=== PATIENT | female | born 1965 | race Caucasian/White ===

== ENCOUNTER → 2017-01-22 | Outpatient (CLI) | payer OTHER ==
[~2017-01-22] MED LIST: DCS100C PO; ESTROGENS CONJUGATED PO; HYDR-34 PO; IBP600T1 PO; Simethicone PO; VALS1TAB74 PO
--- NOTE | 2017-01-24 19:02 | Diagnostic Imaging Report ---
Bilateral screening mammogram The current study was also evaluated with a Computer Aided Detection (CAD) system. Indication: Screening. No current complaints stated on the questionnaire. COMPARISON: 07/03/16. FINDINGS: The breasts are composed of scattered fibroglandular densities. Benign-appearing calcification in the right breast is seen. Allowing for technique and positional differences, no suspicious change is seen. IMPRESSION: No significant change. ACR BI-RADS Category 2: Benign findings. Result letter will be mailed to the patient. Note: At least 10% of breast cancer is not imaged by mammography. Dictated by: Dictated on workstation # [id number]
== END ==
LOC: RAD 08:45
PROVIDERS: ATTEND Obstetrics & Gynecology
DX: Z12.31 Encounter for screening mammogram for malignant neoplasm of breast (principal)
CPT/HCPCS: 77067

== ENCOUNTER → 2018-02-05 | Outpatient (CLI) | payer BC, OTHER ==
--- NOTE | 2018-02-06 11:55 | Diagnostic Imaging Report ---
INDICATION: Routine screening. Comparison is made with prior exam from 01/22/2017 and 07/03/2016. The current study was also evaluated with a Computer Aided Detection (CAD) system. Scattered fibroglandular densities are identified bilaterally. The parenchymal pattern appears stable. Intraparenchymal lymph nodes on the left appears stable. No new mass or malignant appearing microcalcifications are seen. The axillae are unremarkable. IMPRESSION: BI-RADS category 2 No mammographic features suspicious for malignancy are identified. ACR BI-RADS Category 2: Benign findings. Result letter will be mailed to the patient. Note: At least 10% of breast cancer is not imaged by mammography. Dictated by: Dictated on workstation # [id number]
== END ==
LOC: RAD 15:30
PROVIDERS: ATTEND Obstetrics & Gynecology
DX: Z12.31 Encounter for screening mammogram for malignant neoplasm of breast (principal)
CPT/HCPCS: 77067

== ENCOUNTER → 2019-04-21 | Outpatient (CLI) | payer BC ==
--- NOTE | 2019-04-21 13:12 | Diagnostic Imaging Report ---
INDICATION: Routine screening. COMPARISON: 02/05/2018 and 01/22/2017. TECHNIQUE: 2D and 3D bilateral screening mammography was performed with CAD. FINDINGS: Scattered fibroglandular densities are identified bilaterally. Intraparenchymal lymph nodes appear to be stable bilaterally. No new mass or malignant appearing microcalcifications are seen. The axillae are unremarkable. IMPRESSION: No mammographic features suspicious for malignancy are identified. ACR BI-RADS Category 2: Benign findings. Result letter will be mailed to the patient. Note: At least 10% of breast cancer is not imaged by mammography. Dictated by: Dictated on workstation # [id number]
== END ==
LOC: RAD 08:19
PROVIDERS: ATTEND Obstetrics & Gynecology
DX: Z12.31 Encounter for screening mammogram for malignant neoplasm of breast (principal)
CPT/HCPCS: 77067

== ENCOUNTER → 2020-07-21 | Outpatient (CLI) | payer BC ==
--- NOTE | 2020-07-25 08:39 | Diagnostic Imaging Report ---
Digital mammogram. Bilateral screening This study was compared to the prior exams of 04/21/2019, 02/05/2018 and 01/22/2017. At this time there are no current complaints. The current study was also evaluated with a Computer Aided Detection (CAD) system. FINDINGS: The fibroglandular tissue in both breasts is heterogeneously dense. This does limit the sensitivity of this exam. Overall, there does not appear to have been any significant change when compared to the prior study. No primary or secondary sign of malignancy is noted. IMPRESSION: There is no radiographic evidence for malignancy. ACR BI-RADS Category 1: Negative. Result letter will be mailed to the patient. Note: At least 10% of breast cancer is not imaged by mammography. Dictated by: Dictated on workstation # [id number]
== END ==
LOC: RAD 15:45
PROVIDERS: ATTEND Obstetrics & Gynecology
DX: Z12.31 Encounter for screening mammogram for malignant neoplasm of breast (principal)
CPT/HCPCS: 77063; 77067

== ENCOUNTER 2020-10-21 12:42 | Emergency (ER) | payer OTHER ==
[~2020-10-21] VITALS: Ht 157 cm; Wt 84.0 kg
[2020-10-21] MEDS ORDERED: LACTATED RINGERS 1,000 ML IV ONE ×2 (13:44→14:45)
[2020-10-21] MEDS ORDERED: LACTATED RINGERS 1,000 ML IV STA ×2 (13:46→15:35)
[2020-10-21 14:15] LABS: BASOPHILS % (AUTO) 0 % (0-10); EOSINOPHILS % (AUTO) 0 % (0-10); HEMATOCRIT 40 % (35-52); HEMOGLOBIN 13.7 g/dL (11.5-16.0); LYMPHOCYTES # (AUTO) 0.6 10^3/uL (1.0-4.0); LYMPHOCYTES % (AUTO) 12 % (12-44); MEAN CORPUSCULAR HEMOGLOBIN 30 pg (25-34); MEAN CORPUSCULAR HGB CONC 35 g/dL (32-36); MEAN CORPUSCULAR VOLUME 87 fL (80-99); MEAN PLATELET VOLUME 8.8 fL (9.0-12.2); MONOCYTES # (AUTO) 0.3 10^3/uL (0.0-1.0); MONOCYTES % (AUTO) 7 % (0-12); NEUTROPHILS % (AUTO) 81 % (42-75); PLATELET COUNT 185 10^3/uL (130-400); WHITE BLOOD COUNT 4.9 10^3/uL (4.3-11.0)
[2020-10-21 14:22] LABS: ALBUMIN 4.5 GM/DL (3.2-4.5); CHLORIDE 99 MMOL/L (98-107); POTASSIUM 2.7 MMOL/L (3.6-5.0); SODIUM 139 MMOL/L (135-145)
[2020-10-21 14:23] LABS: CALCIUM 9.2 MG/DL (8.5-10.1)
[2020-10-21 14:24] LABS: GLUCOSE 106 MG/DL (70-105); TOTAL PROTEIN 7.9 GM/DL (6.4-8.2)
[2020-10-21 14:25] LABS: CARBON DIOXIDE 25 MMOL/L (21-32)
[2020-10-21 14:26] LABS: BILIRUBIN,TOTAL 0.7 MG/DL (0.1-1.0)
[2020-10-21 14:27] LABS: ALKALINE PHOSPHATASE 73 U/L (40-136)
[2020-10-21] MEDS ORDERED: RT-ALBUTEROL INHALER HFA (VENTOLIN HFA) 18 GM IH ONE (14:27)
[2020-10-21 14:28] LABS: CREATININE SERUM 0.76 MG/DL (0.60-1.30); GFR ESTIMATED > 60
[2020-10-21 14:29] LABS: BUN/CREATININE RATIO 16
[2020-10-21 14:31] LABS: ALANINE AMINOTRANSFERASE 32 U/L (0-55)
--- NOTE | 2020-10-21 14:42 | Diagnostic Imaging Report ---
Portable erect AP chest at 225 hours. INDICATION: Cough, fever. FINDINGS: The heart size is within normal limits and stable when compared to 04/16/2016. The lungs seem generally clear. There are a few carotid bronchovascular markings in the left retrocardiac region but there is no clear evidence for pneumonia. There is no sign of a pleural effusion. The mediastinum is not widened. The osseous structures are intact. IMPRESSION: 1. There is no evidence for active disease. 2. If clinical concern regarding an underlying abnormality persists, then follow-up PA and lateral chest would be recommended for further study. Dictated by: Dictated on workstation # [id number]
--- NOTE | 2020-10-21 14:53 | ED Cough/URI ---
General Chief Complaint: Respiratory Problems Stated Complaint: COUGH/ HEAVY BREATHING Nursing Triage Note: PT STATES COUGH THAT STARTED ABOUT 11 DAYS AGO, HEAVINESS AND MORE COUGHING OVER THE LAST 2 DAYS, FEVER 37.8 AT TRIAGE BUT SHE HAD NOT NOTICED ONE AT HOME. Sepsis Screen: No Definite Risk Source: patient Exam Limitations: no limitations History of Present Illness Date Seen by Provider: Oct 21, 2020 Time Seen by Provider: 14:29 Initial Comments Here with report of cough that started on 10/10/2020 and has been fairly minimal until a few days ago when it got markedly worse. She thought it was allergies when it first started because it started after she was raking leaves on the . Noted fever at triage but not at home. Denies nausea or vomiting. Does describe some chest tightness and states that she feels it is just a little harder to breathe. No known Covid exposure. 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 Timing/Duration: getting worse, other (2 to 10 days) Severity/Quality: moderate, dry cough Prior Episodes/Possible Cause: no prior episodes Modifying Factors: Worse With Coughing; Improves With Rest Associated Symptoms: cough, fever/chills, nasal congestion, shortness of breath Allergies and Home Medications Allergies Coded Allergies: No Known Drug Allergies (Unverified , 03/30/15) Home Medications Docusate Sodium 100 Mg Cap, 100 MG PO BID PRN for CONSTIPATION Prescribed by: ADAMS SPENCER on 04/01/151402 Hydrocodone Bit/Acetaminophen 1 Ea Tablet, 1 EA PO Q6H PRN for PAIN Prescribed by: ADAMS SPENCER on 04/01/151402 Ibuprofen 600 Mg Tab, 600 MG PO Q6H PRN for PAIN Prescribed by: ADAMS SPENCER on 04/01/151402 [Estrogens Conjugated] 0.625 MG TAB, 0.625 MG PO DAILY Prescribed by: ADAMS SPENCER on 04/01/151402 [Simethicone] 80 MG CHEW, 40 MG PO TID PRN for INDIGESTION Prescribed by: ADAMS SPENCER on 04/01/151402 Patient Home Medication List Home Medication List Reviewed: Yes Review of Systems Review of Systems Constitutional: see HPI; No chills; fever EENTM: see HPI Respiratory: see HPI Cardiovascular: No chest pain, No edema Gastrointestinal: No abdominal pain; nausea; No vomiting Genitourinary: no symptoms reported Musculoskeletal: no symptoms reported Skin: no symptoms reported All Other Systems Reviewed Negative Unless Noted: Yes Past Czchrxf-Xcnirv-Mefkzz Hx Past Med/Social Hx: Reviewed Nursing Past Med/Soc Hx Patient Social History Alcohol Use: Denies Use Recreational Drug Use: No Smoking Status: Never a Smoker Recent Foreign Travel: No Contact w/Someone Who Travel: No Recent Infectious Disease Expo: No Recent Hopitalizations: No Physical Abuse: No Sexual Abuse: No Mistreated: No Fear: No Immunizations Up To Date Date of Influenza Vaccine: Jul 28, 2020 Seasonal Allergies Seasonal Allergies: Yes Past Medical History Surgeries: Yes (HALF THYROID) Gallbladder, Hysterectomy Respiratory: No Cardiac: Yes Hypertension Neurological: No : No Reproductive Disorders: No Female Reproductive Disorders: Denies Sexually Transmitted Disease: No HIV/AIDS: No Genitourinary: No Gastrointestinal: No Musculoskeletal: No Endocrine: No Cancer: No Psychosocial: No Integumentary: No Blood Disorders: No Adverse Reaction/Blood Tranf: No Family Medical History Reviewed Nursing Family Hx Physical Exam Vital Signs - First Documented 10/21/20 13:50 Temp 37.8 Pulse 102 Resp 16 B/P (MAP) 151/92 (111) Pulse Ox 97 O2 Delivery Room Air Capillary Refill : Less Than 3 Seconds Height: 5'3.00" Weight: 219lbs. oz. 99.863517rc; 34.00 BMI Method: General Appearance: WD/WN, no apparent distress HEENT: PERRL/EOMI, pharynx normal Neck: full range of motion, supple Respiratory: lungs clear, normal breath sounds Cardiovascular: no murmur, tachycardia Gastrointestinal: non tender, soft Extremities: non-tender, normal inspection Neurologic/Psychiatric: alert, oriented x 3 Skin: normal color, warm/dry Progress/Results/Core Measures Suspected Sepsis Recent Fever Within 48 Hours: No Infection Criteria Present: Suspected New Infection New/Unexplained Altered Menta: No Sepsis Screen: No Definite Risk SIRS Temperature: Pulse: 102 Respiratory Rate: 16 Laboratory Tests 10/21/20 14:00: White Blood Count 4.9 Blood Pressure 151 /92 Mean: 111 Laboratory Tests 10/21/20 14:00: Creatinine 0.76, Platelet Count 185, Total Bilirubin 0.7 Results/Orders Lab Results Laboratory Tests Test 10/21/20 13:55 10/21/20 14:00 Range/Units Coronavirus 2019 ([facility]) Positive H Negative White Blood Count 4.9 4.3-11.0 10^3/uL Red Blood Count 4.55 3.80-5.11 10^6/uL Hemoglobin 13.7 11.5-16.0 g/dL Hematocrit 40 35-52 % Mean Corpuscular Volume 87 80-99 fL Mean Corpuscular Hemoglobin 30 25-34 pg Mean Corpuscular Hemoglobin Concent 35 32-36 g/dL Red Cell Distribution Width 12.1 10.0-14.5 % Platelet Count 185 130-400 10^3/uL Mean Platelet Volume 8.8 L 9.0-12.2 fL Immature Granulocyte % (Auto) 1 % Neutrophils (%) (Auto) 81 H 42-75 % Lymphocytes (%) (Auto) 12 12-44 % Monocytes (%) (Auto) 7 0-12 % Eosinophils (%) (Auto) 0 0-10 % Basophils (%) (Auto) 0 0-10 % Neutrophils # (Auto) 4.0 1.8-7.8 10^3/uL Lymphocytes # (Auto) 0.6 L 1.0-4.0 10^3/uL Monocytes # (Auto) 0.3 0.0-1.0 10^3/uL Eosinophils # (Auto) 0.0 0.0-0.3 10^3/uL Basophils # (Auto) 0.0 0.0-0.1 10^3/uL Immature Granulocyte # (Auto) 0.0 0.0-0.1 10^3/uL D-Dimer 0.59 H 0.00-0.49 UG/ML Sodium Level 139 135-145 MMOL/L Potassium Level 2.7 L 3.6-5.0 MMOL/L Chloride Level 99 98-107 MMOL/L Carbon Dioxide Level 25 21-32 MMOL/L Anion Gap 15 H 5-14 MMOL/L Blood Urea Nitrogen 12 7-18 MG/DL Creatinine 0.76 0.60-1.30 MG/DL Estimat Glomerular Filtration Rate > 60 BUN/Creatinine Ratio 16 Glucose Level 106 H 70-105 MG/DL Calcium Level 9.2 8.5-10.1 MG/DL Corrected Calcium 8.8 8.5-10.1 MG/DL Total Bilirubin 0.7 0.1-1.0 MG/DL Aspartate Amino Transf (AST/SGOT) 35 H 5-34 U/L Alanine Aminotransferase (ALT/SGPT) 32 0-55 U/L Alkaline Phosphatase 73 40-136 U/L C-Reactive Protein High Sensitivity 9.58 H 0.00-0.50 MG/DL B-Type Natriuretic Peptide < 10.0 <100.0 PG/ML Total Protein 7.9 6.4-8.2 GM/DL Albumin 4.5 3.2-4.5 GM/DL Procalcitonin 0.03 <0.10 NG/ML Micro Results Microbiology 10/21/20 Influenza Types A,B Antigen ([facility]OR[facility]) - Final, Complete My Orders Orders - TONIA RAMIREZ MD Lactated Ringers (Lr 1000 Ml Iv Solution (10/21/20 13:46) Lactated Ringers (Lr 1000 Ml Iv Solution (10/21/20 13:44) Albuterol Inhaler (Ventolin Hfa) (10/21/20 14:27) Ed Iv/Invasive Line Start (10/21/20 14:41) Lactated Ringers (Lr 1000 Ml Iv Solution (10/21/20 14:45) Potassium Chloride (Tablet) (K Dur Table (10/21/20 15:00) Lactated Ringers (Lr 1000 Ml Iv Solution (10/21/20 15:35) Medications Given in ED Current Medications Medications Dose Ordered Sig/Vianca Route Start Time Stop Time Status Last Admin Dose Admin Albuterol Sulfate 18 gm STK-MED ONCE IH 10/21/20 14:27 10/21/20 14:30 DC 10/21/20 14:40 18 GM Lactated Ringer's 1,000 ml @ ud STK-MED ONCE IV 10/21/20 13:44 10/21/20 13:48 DC 10/21/20 14:06 1,000 MLS/HR Potassium Chloride 40 meq ONCE ONCE PO 10/21/20 15:00 10/21/20 15:01 DC 10/21/20 14:59 40 MEQ Vital Signs/I&O 10/21/20 13:50 Temp 37.8 Pulse 102 Resp 16 B/P (MAP) 151/92 (111) Pulse Ox 97 O2 Delivery Room Air Capillary Refill : Less Than 3 Seconds Blood Pressure Mean: 111 Progress Note : Progress Note Seen and evaluated. IV, labs, chest x-ray and Covid swab ordered. Covid swab was positive. Patient remains with heart rate upper 90s after 1 L of fluid. Repeat LR 1 L bolus. Albuterol metered-dose inhaler 4 puffs via spacer given. Potassium 40 mEq p.o. ordered. Monitor patient. 1557: Overall doing a little better. I did discuss the case with her [id number]. He will get her pulse oximeter. Overall her oxygen saturations are remaining in the high 90s to 100% resting. Discharged home with return precautions. Patient verbalized understanding of instructions and agreement with plan. Does not meet inclusion criteria for monoclonal antibody therapy. ECG Initial ECG Impression Date: Oct 21, 2020 Initial ECG Impression Time: 13:34 Initial ECG Rate: 102 Initial ECG Rhythm: Normal Sinus Comment Sinus rhythm with normal axis. LVH noted. Change from 04/16/2016. No evidence of ST elevation SD. Interpreted by me. Diagnostic Imaging Diagonstic Imaging: Xray Plain Films/CT/US/NM/MRI: chest Comments NAME: LUISA LAZARO [facility] REC#: [id number] PT STATUS: REG ER : 1965 PHYSICIAN: RACHEL DESAI APRN ADMIT DATE: 10/21/20/ER Draft Date of Exam:10/21/20 CHEST 1 VIEW, AP/PA ONLY Portable erect AP chest at 225 hours. INDICATION: Cough, fever. FINDINGS: The heart size is within normal limits and stable when compared to 04/16/2016. The lungs seem generally clear. There are a few carotid bronchovascular markings in the left retrocardiac region but there is no clear evidence for pneumonia. There is no sign of a pleural effusion. The mediastinum is not widened. The osseous structures are intact. IMPRESSION: 1. There is no evidence for active disease. 2. If clinical concern regarding an underlying abnormality persists, then follow-up PA and lateral chest would be recommended for further study. Dictated on workstation # [id number] Dict: 10/21/20 1433 Trans: 10/21/20 1441 [id number] Interpreted by: JENNIFER AYALA MD Electronically signed by: Departure Impression Primary Impression: COVID-19 virus infection Additional Impression: Hypokalemia Disposition: 01 HOME, SELF-CARE Condition: Stable Departure-Patient Inst. Decision time for Depature: 15:34 Referrals: PALLAVI KELLEY MD (PCP/Family) Primary Care Physician Patient Instructions: Coronavirus Disease 2019 (COVID-19) Overview, Hypokalemia Add. Discharge Instructions: All discharge instructions reviewed with patient and/or family. Voiced understanding. Drink plenty of fluids and get plenty of rest. Your potassium was low so you should add electrolyte containing fluids such as Gatorade to your diet. You may also eat high potassium content foods such as bananas. You will need to remain isolated. The health department will call you and direct isolation timeframe. You may take ibuprofen 600 mg every 8 hours as needed for fever or pain. You may take Tylenol/acetaminophen 1000 mg every 8 hours as needed for fever or pain. Return for worse pain, fever, vomiting, weakness, breathing problems or other concerns as needed. Monitor your oxygen saturations. If your resting oxygen saturation is greater than 94%, there is no concern. If your oxygen saturation falls to the range of 90 or 91% (and certainly below that) while resting, you will need to return to the hospital for further evaluation. TONIA RAMIREZ MD Oct 21, 2020 14:53
[2020-10-21] MEDS ORDERED: KCL 20 MEQ TAB (K-DUR) PO ONE (15:00)
[2020-10-21 15:53] VITALS: BP 130/79
== END 2020-10-21 15:53 | disposition home or self-care (01) ==
LOC: EDUNIT# 12:42 → ER 12:44
DX: U07.1 COVID-19 (principal); E87.6 Hypokalemia
CPT/HCPCS: 71045; 80053; 83880; 84145; 85025; 85379; 86141; 87804; 99284; U0002; 36415; 87635

== ENCOUNTER → 2021-12-25 | Outpatient (CLI) | payer OTHER ==
--- NOTE | 2021-12-26 13:10 | Diagnostic Imaging Report ---
INDICATION: Routine screening Comparison is made with prior mammogram 07/21/2020 and 04/21/2019. 2-D and 3-D bilateral screening mammography was performed with CAD. Scattered fibroglandular densities are identified bilaterally. Bilateral densities appear to be stable. No new mass or malignant-appearing microcalcifications are seen. There are benign calcifications present. Axillae are unremarkable. IMPRESSION: No mammographic features suspicious for malignancy are identified. BI-RADS Category 2 ACR BI-RADS Category 2: Benign findings. Result letter will be mailed to the patient. Note: At least 10% of breast cancer is not imaged by mammography. Dictated by: Dictated on workstation # [id number]
== END ==
LOC: RAD 15:45
PROVIDERS: ATTEND Family Medicine Sports Medicine
DX: Z12.31 Encounter for screening mammogram for malignant neoplasm of breast (principal)
CPT/HCPCS: 77063; 77067

== ENCOUNTER 2023-06-11 03:16 | Emergency (ER) | payer OTHER ==
[~2023-06-11] VITALS: Ht 157.4 cm; Wt 90.7 kg
[2023-06-11 03:23] VITALS: BP 145/99
--- NOTE | 2023-06-11 03:55 | ED Abdominal Pain ---
General Chief Complaint: Abdominal/GI Problems Stated Complaint: ABD PAIN Nursing Triage Note: HAVING RLQ PAIN SINCE 01/04/23. TAKEN IBUPROFEN INTERMITTENTLY. SOME RELIEF. DULL ACHY PAIN WITH SHARPNESS WITH PALPATION. REPORTS INTERMITTENTLY CLAMMINESS AND SWEATS, NO FEVER NOTED. PAIN WOKE PT OUT OF SLEEP TONIGHT. LAST BM WAS 06/10/23. HAVING SOME DIARRHEA. Source of Information: Patient Exam Limitations: No Limitations History of Present Illness Date Seen by Provider: Jun 11, 2023 Time Seen by Provider: 03:42 Initial Comments Patient is a 58-year-old female who presents to the emergency department with a chief complaint of right lower quadrant abdominal pain. Patient states that the pain has been indolent over the course of the last 5 days. She has taken some ibuprofen with a little relief of symptoms. She states that movement, walking and palpation of the area make her pain more intense. She did wake up this morning at 2 AM and was concerned that she was ignoring something that could be important so decided to come and be evaluated. She denies known fever. She did wake up quite sweaty this morning. She denies any dysuria, urgency or frequency. No blood noticed in her urine. No black or bloody stools, no diarrhea. She is scheduled for her first colonoscopy at the beginning of July. She has had prior cholecystectomy and laparoscopic hysterectomy. She did take some ibuprofen prior to sleep last night. She has just generally not felt well over the course of the last several days. 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 Timing/Duration: 4-5 Days, Constant Severity/Quality: Aching, Sharp Location: RLQ Radiation: No Radiation Activities at Onset: None Modifying Factors: Worsens With Movement, Worsens With Palpation Associated Symptoms: Diaphoresis Allergies and Home Medications Allergies Coded Allergies: No Known Drug Allergies (Unverified , 03/30/15) Patient Home Medication List Home Medication List Reviewed: Yes Docusate Sodium (Colace) 100 Mg Cap, 100 MG PO BID PRN for CONSTIPATION Prescribed by: ADAMS SPENCER on 04/01/15 1403 Hydrocodone Bit/Acetaminophen (Lortab 7.5 Mg Tablet) 1 Ea Tablet, 1 EA PO Q6H PRN for PAIN Prescribed by: ADAMS SPENCER on 04/01/15 1403 Ibuprofen (Motrin Tablet) 600 Mg Tab, 600 MG PO Q6H PRN for PAIN Prescribed by: ADAMS SPENCER on 04/01/15 140 Valsartan/Hydrochlorothiazide (Valsartan-Hctz 160-12.5 Mg Tab) 1 Each Tablet, 1 EACH PO, (Reported) Entered as Reported by: VIRA JIMENEZ on 03/30/15 1016 [Estrogens Conjugated] 0.625 MG TAB, 0.625 MG PO DAILY Prescribed by: ADAMS SPENCER on 04/01/15 140 [Simethicone] 80 MG CHEW, 40 MG PO TID PRN for INDIGESTION Prescribed by: ADAMS SPENCER on 04/01/151402 Review of Systems Review of Systems Constitutional: see HPI Respiratory: No Symptoms Reported Cardiovascular: No Symptoms Reported Gastrointestinal: Abdominal Pain; Denies Constipated, Denies Diarrhea, Denies Nausea, Denies Rectal Bleeding Genitourinary: No Symptoms Reported; Denies Hematuria Musculoskeletal: no symptoms reported Skin: no symptoms reported Psychiatric/Neurological: No Symptoms Reported All Other Systems Reviewed Negative Unless Noted: Yes Past Yuwvrqy-Pkqqxh-Fyubjn Hx Patient Social History Tobacco Use?: No Substance use?: No Alcohol Use?: No Pt feels they are or have been: No Seasonal Allergies Seasonal Allergies: Yes Past Medical History Surgeries: Yes (HALF THYROID) Gallbladder, Hysterectomy Respiratory: No Cardiac: Yes Hypertension Neurological: No Reproductive Disorders: No Female Reproductive Disorders: Denies Sexually Transmitted Disease: No HIV/AIDS: No Genitourinary: No Gastrointestinal: No Musculoskeletal: No Endocrine: No Cancer: No Psychosocial: No Integumentary: No Blood Disorders: No Adverse Reaction/Blood Tranf: No Physical Exam Vital Signs Vital Signs - First Documented 06/11/23 03:23 Temp 36.7 Pulse 97 Resp 18 B/P (MAP) 145/99 (114) Pulse Ox 98 O2 Delivery Room Air Capillary Refill : Less Than 3 Seconds Height/Weight/BMI Height: 5'3.00" Weight: 219lbs. oz. 99.457458lp; 36.00 BMI Method: General Appearance: WD/WN, no apparent distress, obese HEENT: PERRL/EOMI Respiratory: lungs clear, normal breath sounds, no respiratory distress, no accessory muscle use Cardiovascular: regular rate, rhythm Gastrointestinal: soft, tenderness (mild tenderness RLQ without rebound or involuntary guarding. neg psoas/heel tap) Extremities: normal range of motion, normal inspection Back: normal inspection Neurologic/Psychiatric: no motor/sensory deficits, alert, normal mood/affect, oriented x 3 Skin: normal color, warm/dry Progress/Results/Core Measures Results/Orders Lab Results Laboratory Tests Test 06/11/23 03:36 06/11/23 03:54 Range/Units White Blood Count 10.5 4.3-11.0 10^3/uL Red Blood Count 4.07 3.80-5.11 10^6/uL Hemoglobin 12.5 11.5-16.0 g/dL Hematocrit 36 35-52 % Mean Corpuscular Volume 89 80-99 fL Mean Corpuscular Hemoglobin 31 25-34 pg Mean Corpuscular Hemoglobin Concent 35 32-36 g/dL Red Cell Distribution Width 12.6 10.0-14.5 % Platelet Count 236 130-400 10^3/uL Mean Platelet Volume 9.0 9.0-12.2 fL Immature Granulocyte % (Auto) 0 % Neutrophils (%) (Auto) 68 42-75 % Lymphocytes (%) (Auto) 22 12-44 % Monocytes (%) (Auto) 9 0-12 % Eosinophils (%) (Auto) 1 0-10 % Basophils (%) (Auto) 0 0-10 % Neutrophils # (Auto) 7.1 1.8-7.8 10^3/uL Lymphocytes # (Auto) 2.3 1.0-4.0 10^3/uL Monocytes # (Auto) 0.9 0.0-1.0 10^3/uL Eosinophils # (Auto) 0.1 0.0-0.3 10^3/uL Basophils # (Auto) 0.0 0.0-0.1 10^3/uL Immature Granulocyte # (Auto) 0.0 0.0-0.1 10^3/uL Sodium Level 138 135-145 MMOL/L Potassium Level 3.0 L 3.6-5.0 MMOL/L Chloride Level 104 98-107 MMOL/L Carbon Dioxide Level 23 21-32 MMOL/L Anion Gap 11 5-14 MMOL/L Blood Urea Nitrogen 17 7-18 MG/DL Creatinine 0.76 0.60-1.30 MG/DL Estimat Glomerular Filtration Rate 92 BUN/Creatinine Ratio 22 Glucose Level 108 H 70-105 MG/DL Calcium Level 9.3 8.5-10.1 MG/DL Urine Color YELLOW Urine Clarity CLEAR Urine pH 5.5 5-9 Urine Specific [place] >=1.030 1.016-1.022 Urine Protein TRACE H NEGATIVE Urine Glucose (UA) NEGATIVE NEGATIVE Urine Ketones NEGATIVE NEGATIVE Urine Nitrite NEGATIVE NEGATIVE Urine Bilirubin NEGATIVE NEGATIVE Urine Urobilinogen 0.2 < = 1.0 MG/DL Urine Leukocyte Esterase NEGATIVE NEGATIVE Urine RBC (Auto) NEGATIVE NEGATIVE Urine RBC NONE /HPF Urine WBC 0-2 /HPF Urine Squamous Epithelial Cells 5-10 /HPF Urine Crystals PRESENT H /LPF Urine Amorphous Sediment FEW RUBIN URATES H /LPF Urine Bacteria FEW H /HPF Urine Casts NONE /LPF Urine Mucus SMALL H /LPF Urine Culture Indicated YES My Orders Orders - RODOLFO SAUER MD Ed Iv/Invasive Line Start (06/11/23 03:51) Cbc With Automated Diff (06/11/23 03:51) Basic Metabolic Panel (06/11/23 03:51) Urinalysis (06/11/23 03:51) Urine Culture (06/11/23 03:54) Outside Films For Comparison (06/11/23 ) Vital Signs/I&O 06/11/23 06/11/23 03:23 05:18 Temp 36.7 36.4 Pulse 97 94 Resp 18 14 B/P (MAP) 145/99 (114) Pulse Ox 98 98 O2 Delivery Room Air Room Air Blood Pressure Mean: 114 Progress Progress Note : Time: 05:12 Progress Note Patient seen and evaluated by me. Evaluation today includes physical exam, basic metabolic panel and urinalysis. Pertinent physical exam findings well- developed well-nourished female in no acute distress. Heart is regular, lungs are clear. She has mild tenderness to deep palpation in the right lower quadrant without rebound or involuntary guarding. Negative heeltap. She has normal bowel sounds. No overlying erythema to the abdominal wall. No concerns for rashes. Her vital signs are stable, she is afebrile, not hypoxic, not tachycardic. Differential diagnosis based on history and physical examination, UTI, acute appendicitis, colitis. Labs independently reviewed and interpreted by me. Her CBC is completely normal. Her basic metabolic panel shows a mild hypokalemia at 3.0. Her renal function is normal. Her urinalysis is concentrated with specific gravity greater than 1.030 and no evidence of infection. Patient did not require any medications for pain during her stay in the emergency department. She states it was actually better at the time of exam. She is concerned for appendicitis, reassurance was provided. Clinically she does have right lower quadrant tenderness however without rebound, involuntary guarding, vomiting, leukocytosis and fever I did not believe that a CAT scan was warranted at this time. The patient tells me that she has an appointment with her primary care provider at 1030 this morning. I recommended that she keep this appointment as her exam could change. Return precautions provided in both verbal and written format. All questions are sought and answered. Patient is stable for discharge and enco uraged to continue Tylenol and ibuprofen as needed for pain Departure Impression Primary Impression: Abdominal pain Qualified Codes: R10.31 - Right lower quadrant pain Disposition: 01 HOME, SELF-CARE Condition: Stable Departure-Patient Inst. Decision time for Depature: 05:12 Referrals: ABHISHEK RITCHIE MD (PCP/Family) Primary Care Physician RODOLFO SAUER MD Jun 11, 2023 03:55
[2023-06-11 03:59] LABS: BASOPHILS % (AUTO) 0 % (0-10); EOSINOPHILS # (AUTO) 0.1 10^3/uL (0.0-0.3); EOSINOPHILS % (AUTO) 1 % (0-10); HEMATOCRIT 36 % (35-52); HEMOGLOBIN 12.5 g/dL (11.5-16.0); LYMPHOCYTES # (AUTO) 2.3 10^3/uL (1.0-4.0); LYMPHOCYTES % (AUTO) 22 % (12-44); MEAN CORPUSCULAR HEMOGLOBIN 31 pg (25-34); MEAN CORPUSCULAR HGB CONC 35 g/dL (32-36); MEAN CORPUSCULAR VOLUME 89 fL (80-99); MONOCYTES # (AUTO) 0.9 10^3/uL (0.0-1.0); MONOCYTES % (AUTO) 9 % (0-12); NEUTROPHILS # (AUTO) 7.1 10^3/uL (1.8-7.8); NEUTROPHILS % (AUTO) 68 % (42-75); PLATELET COUNT 236 10^3/uL (130-400); WHITE BLOOD COUNT 10.5 10^3/uL (4.3-11.0)
[2023-06-11 04:12] LABS: CALCIUM 9.3 MG/DL (8.5-10.1)
[2023-06-11 04:16] LABS: CREATININE SERUM 0.76 MG/DL (0.60-1.30)
[2023-06-11 04:25] LABS: AMORPHOUS SEDIMENT,UR FEW AMOR URATES /LPF; BACTERIA,URINE FEW /HPF; BILIRUBIN,URINE NEGATIVE (NEGATIVE); CLARITY,URINE CLEAR; COLOR,URINE YELLOW; GLUCOSE, URINE (UA) NEGATIVE (NEGATIVE); KETONES,URINE NEGATIVE (NEGATIVE); LEUKOCYTE ESTERASE ,URINE NEGATIVE (NEGATIVE); NITRITE,URINE NEGATIVE (NEGATIVE); PH,URINE 5.5 (5-9); PROTEIN,URINE TRACE (NEGATIVE); WBC,URINE 0-2 /HPF
[2023-06-11] MEDS ORDERED: LIDOCAINE PF 2% 5 ML VIAL ONE (16:56)
[2023-06-11] MEDS ORDERED: MIDAZOLAM INJ 2 MG/2 ML VIAL ONE (16:56)
[2023-06-11] MEDS ORDERED: SEVOFLURANE (ULTANE) 15 ML INHAL SOLN ONE (16:56)
[2023-06-11] MEDS ORDERED: fentaNYL INJECTION 100 MCG/2 ML VIAL ONE (16:56)
[2023-06-11] MEDS ORDERED: ROCURONIUM 50 MG/5 ML (ZEMURON) VIAL IV ONE (16:56)
[2023-06-11] MEDS ORDERED: proPOfol 200 MG/20 ML (DIPRIVAN) VIAL IV ONE (16:56)
[2023-06-11] MEDS ORDERED: SUCCINYLCHOLINE INJ 20 MG/1 ML 10 ML VIAL ONE (17:12)
== END 2023-06-11 05:18 | disposition home or self-care (01) ==
LOC: EDUNIT# 03:16 → ER 03:20
DX: R10.31 Right lower quadrant pain (principal); Z90.49 Acquired absence of other specified parts of digestive tract
CPT/HCPCS: 36415; 80048; 81000; 85025; 87088

== ENCOUNTER 2023-06-11 15:49 | Observation (INO) | payer OTHER ==
[2023-06-11] VITALS (12 sets, daily range): BP systolic 99–165; BP diastolic 63–94
[~2023-06-11] VITALS: Ht 157.5 cm; Wt 91.9 kg
--- NOTE | 2023-06-11 16:37 | History & Physical-Surgical ---
History of Present Illness History of Present Illness Reason for visit/HPI CC: rlq abdominal pain, acute appendicitis Date of Admission Jun 11, 2023 at 16:02 Date Seen by a Provider: Jun 11, 2023 Time Seen by a Provider: 16:32 I consulted on this patient on 06/11/23 16:32 58 year old female 5 days of not feeling so well. Slight abdominal discomfort and feeling rocks in stomach. Last 2 days increasing pain. Pain located in right lower quadrant and into the inguinal region.She describes pain as sharp an d starting to burn. Has been a constant 7/10 for the last 24 hours. Patient had decreased appetite. Denies N/V. Had diarrhea but tried Miralax to relieve symptoms. Moving makes worse. Ibuprofen made better some. Went to ER this morning and then PCP later this morning and had CT done which was reported to me as acute appendicitis with small 2 cm abscss adjacent to appendix. Attending Physician Marquez Lake MD Admitting Physician Admitting Physician: Stevie Brown DO Attending Physician: Stevie Brown DO Consult Allergies and Home Medications Allergies Coded Allergies: No Known Drug Allergies (Unverified , 03/30/15) Patient Home Medication List Home Medication List Reviewed: Yes Docusate Sodium (Colace) 100 Mg Cap, 100 MG PO BID PRN for CONSTIPATION Prescribed by: ADAMS SPENCER on 04/01/15 140 Hydrocodone Bit/Acetaminophen (Lortab 7.5 Mg Tablet) 1 Ea Tablet, 1 EA PO Q6H PRN for PAIN Prescribed by: ADAMS SPENCER on 04/01/15 140 Ibuprofen (Motrin Tablet) 600 Mg Tab, 600 MG PO Q6H PRN for PAIN Prescribed by: ADAMS SPENCER on 04/01/15 140 Valsartan/Hydrochlorothiazide (Valsartan-Hctz 160-12.5 Mg Tab) 1 Each Tablet, 1 EACH PO, (Reported) Entered as Reported by: VIRA JIMENEZ on 03/30/15 1016 [Estrogens Conjugated] 0.625 MG TAB, 0.625 MG PO DAILY Prescribed by: ADAMS SPENCER on 04/01/15 140 [Simethicone] 80 MG CHEW, 40 MG PO TID PRN for INDIGESTION Prescribed by: ADAMS SPENCER on 04/01/15 140 Past Iiwtrrr-Zoveda-Vfnaeh Hx Patient Social History Smoking Status: Never a Smoker Recent Hopitalizations: No Immunizations Up To Date Date of Influenza Vaccine: Jul 28, 2020 Seasonal Allergies Seasonal Allergies: Yes Surgeries History of Surgeries: Yes (HALF THYROID, right shoulder) Surgeries: Gallbladder, Hysterectomy Respiratory History of Respiratory Disorde: No Cardiovascular History of Cardiac Disorders: Yes Cardiac Disorders: Hypertension Neurological History of Neurological Disord: No Reproductive System Hx Reproductive Disorders: No Sexually Transmitted Disease: No HIV/AIDS: No Female Reproductive Disorders: Denies Genitourinary History of Genitourinary Disor: No Gastrointestinal History of Gastrointestinal Di: No Musculoskeletal History of Musculoskeletal Dis: No Endocrine History of Endocrine Disorders: No Cancer History of Cancer: No Psychosocial History of Psychiatric Problem: No Integumentary History of Skin or Integumenta: No Blood Transfusions History of Blood Disorders: No Adverse Reaction to a Blood Tr: No Reviewed Nursing Assessment Reviewed/Agree w Nursing PMH: Yes Family Medical History Significant Family History: No Pertinent Family Hx Review of Systems Constitutional: No chills, No diaphoresis EENTM: No blurred vision, No double vision Respiratory: No cough, No dyspnea on exertion Cardiovascular: No chest pain, No palpitations Gastrointestinal: RLQ, diarrhea; No nausea, No vomiting Genitourinary: No decreased output, No discharge Musculoskeletal: No back pain, No joint pain Skin: No change in color, No change in hair/nails Psychiatric/Neurological: Denies Anxiety, Denies Depressed, Denies Emotional Problems All Other Systems Reviewed Negative Unless Noted: Yes (Negative excepted noted.) Physical Exam Vital Signs Capillary Refill : Height, Weight, BMI Height: 5'3.00" Weight: 219lbs. oz. 99.565331js; 36.00 BMI Method: General Appearance: No Apparent Distress, WD/WN HEENT: PERRL/EOMI, Normal ENT Inspection Neck: Non Tender, Supple Respiratory: Chest Non Tender, No Accessory Muscle Use, No Respiratory Distress Cardiovascular: Tachycardia Gastrointestinal: Soft, Tenderness (rlq) Rectal: Deferred Back: Normal Inspection, No CVA Tenderness Extremity: Normal Inspection, Non Tender Neurologic/Psychiatric: Alert, Oriented x3, Normal Mood/Affect Skin: Normal Color, Warm/Dry Lymphatic: No Adenopathy Assessment/Plan Assessment/Plan Admission Diagonsis rlq abdominal pain acute appendicitis Admission Status: Observation Assessment/Plan rlq abdominal pain acute appendicitis discussed risk and benefits of laparocopic appendectomy all other indicated procedures. she understands and wishes to proceed NPO IV fluids Zosyn Consent for procedure STEVIE BROWN DO Jun 11, 2023 16:37
[2023-06-11] MEDS ORDERED: morphine INJ 4 MG/ML 1 ML (VIAL/SYRINGE) IVP PRN (16:45)
[2023-06-11] MEDS ORDERED: ONDANSETRON INJECTION 4 MG/2 ML (SDV) IVP PRN (16:45)
[2023-06-11] MEDS ORDERED: LIDOCAINE 1% w/EPI 1:100,000 20 ML VIAL ONE (16:57)
[2023-06-11] MEDS ORDERED: PIPERACILLIN SODIUM/TAZOBACTAM 4.5 GM in NS (IVPB) 100 ML 100 ML IV NR (17:00)
[2023-06-11] MEDS ORDERED: LIDOCAINE 1% w/EPI 1:100,000 20 ML VIAL INJ ONE (17:06)
[2023-06-11] MEDS ORDERED: morphine INJ 10 MG/ML 1ML (SYR OR VIAL) ONE (17:41)
[2023-06-11] MEDS ORDERED: ONDANSETRON INJECTION 4 MG/2 ML (SDV) ONE (17:42)
[2023-06-11] MEDS ORDERED: HYDROmorphone INJECTION 2 MG/ML VIAL ONE (17:42)
[2023-06-11] MEDS ORDERED: LACTATED RINGERS 1,000 ML IV PRN (18:00)
[2023-06-11] MEDS: fentaNYL INJECTION 100 MCG/2 ML VIAL ONE ×2 (18:27→18:56)
[2023-06-11] MEDS: LACTATED RINGERS 1,000 ML IV SCH (19:44)
--- NOTE | 2023-06-11 20:47 | Progress Note-Post Operative ---
Post-Operative Progess Note Surgeon (s)/Administrative Support Manager (s) Surgeon STEVIE BROWN DO Administrative Support Manager: na Pre-Operative Diagnosis appendicitis, rlq abdominal pain Post-Operative Diagnosis perforated appendicitis with intrabdominal abscess Procedure & Operative Findings Date of Procedure 06/11/23 Procedure Performed/Findings PROCEDURE: Laparoscopic appendectomy and drainage of intraabdominal abscess with drain placement. COMPLICATIONS: None. INDICATIONS: The patient is a 58 year old female who has been having right lower quadrant abdominal pain. Patient's exam consistent with appendicitis and ct scan demonstrating appendicitis and likely small abscess. I discussed risk and benefits of laparoscopic appendectomy and all indicated procedures with the possibility being a normal appendix. The patient understands the risks and benefits and wishes to proceed. Consent was signed on the chart. DESCRIPTION OF PROCEDURE: The patient was taken to the operating suite, prepped and draped in a sterile fashion. Timeout was performed. Local anesthetic was infiltrated just above the umbilicus and 11-blade scalpel was used to make a skin incision. Cautery was used to dissect down to the fascia and scored. Kochers were used to grasp and elevate it and the abdomen was then entered. A 0 Vicryl was placed in a [id number] fashion for closure at the end of the case. The balloon trocar was inserted into the abdomen and pneumoperitoneum was achieved. Under direct visualization of the laparoscope, a 5 mm trocar was placed in the suprapubic region and a 5 mm trocar was placed in the left lower quadrant. Appendix was located which was walled off under small bowel and omentum. The small bowel and omentum were dissected off of the right side of the abdomen with blunt dissection and irrigation. The appendix was dilated inflamed and as mobilized the distal portion was perforated and the abscess was able to be drained. The base of the appendix was dissected around. Once at the base an Endo-LISSY 2.5 stapler was then fired across the base of the appendix. The mesoappendix was then divided. It was then placed in an Endobag and removed through the 12 mm trocar site. The abdomen was then irrigated and suctioned. No other pathology noted. A 19 titi drain was then placed in the right gutter and brought out through suprapubic trocar site and secured. The abdomen was then desufflated and the trocars were removed. The 0 Vicryl placed at the beginning of the case was then tied closing the 12 mm fascial defect. The skin was then closed using 4-0 Monocryl in a subcuticular fashion. The abdomen was then washed and dried and Skin Affix was placed over the incisions. The patient tolerated the procedure well without any complications and was taken to the recovery room in stable condition. Anesthesia Type general Estimated Blood Loss Estimated blood loss (mL): minimal Specimens/Packing Specimens Removed appendix STEVIE BROWN DO Jun 11, 2023 20:47
[2023-06-11] MEDS ORDERED: KETOROLAC INJ 30 MG/ML VIAL ONE (21:29)
[2023-06-11] MEDS ORDERED: KETOROLAC INJ 30 MG/ML VIAL IVP ONE (21:30)
[2023-06-11] MEDS: PIPERACILLIN SODIUM/TAZOBACTAM 4.5 GM in NS (IVPB) 100 ML 100 ML IV SCH (23:17)
[2023-06-12] MEDS: LACTATED RINGERS 1,000 ML IV SCH ×3 (01:01→19:03)
[2023-06-12 03:15] VITALS: BP 94/61
[2023-06-12] MEDS: ACETAMINOPHEN 325 MG TABLET PO PRN ×2 (03:36→15:29)
[2023-06-12] MEDS: PIPERACILLIN SODIUM/TAZOBACTAM 4.5 GM in NS (IVPB) 100 ML 100 ML IV SCH ×3 (06:21→22:17)
[2023-06-12 07:26] VITALS: BP 106/66
--- NOTE | 2023-06-12 07:31 | Progress Note - Surgery ---
KAROLYN CRUZ 06/12/23 0731: Subjective Date Seen by a Provider: Jun 12, 2023 Time Seen by a Provider: 07:26 Subjective/Events-last exam 58 year old female is post appendectomy. She is doing very well and is having 3/10 pain near the incisional sites. The pain is dull, constant, and is nonradiating. Patient says she is feeling very good and is feeling much better than she did pre-op. She has not passed any gas, has not had any bowel movements, but has been ambulating to use the bathroom throughout the night. Patient is excited to continue moving and leave the hospital soon. Focused Exam Sepsis Stage: Ruled Out Respiratory: Chest Non Tender, Normal Breath Sounds, No Accessory Muscle Use, No Respiratory Distress; No Accessory Muscle Use, No Crackles Cardiovascular: No Edema, No Murmur, Normal Peripheral Pulses; No Bradycardia, No Tachycardia Peripheral Pulses: 2+ Radial Pulses (R), 2+ Radial Pulses (L) Skin: normal color, warm/dry Objective Exam Vital Signs Date Time Temp Pulse Resp B/P (MAP) Pulse Ox O2 Delivery O2 Flow Rate FiO2 06/12/23 03:15 36.5 77 18 94/61 (72) 96 Room Air 06/11/23 23:32 36.9 90 18 107/72 (84) 96 Room Air 06/11/23 19:47 36.7 94 18 108/63 (78) 94 Room Air 06/11/23 19:45 Room Air 06/11/23 19:30 36.6 20 119/74 (89) 97 Room Air 06/11/23 19:30 Room Air 06/11/23 19:20 20 119/74 (89) 99 Room Air 06/11/23 19:15 Room Air 06/11/23 19:10 20 123/72 (89) 99 Room Air 06/11/23 19:00 Room Air 06/11/23 19:00 20 124/72 (89) 06/11/23 18:50 20 122/77 (92) 97 OxyMask 3.00 06/11/23 18:45 OxyMask 3.00 06/11/23 18:40 20 102/70 (81) 100 OxyMask 3.00 06/11/23 18:30 20 99/68 (78) 5 OxyMask 5.00 06/11/23 18:30 OxyMask 4.00 06/11/23 18:20 20 110/70 (83) 100 5.00 06/11/23 18:17 OxyMask 5.00 06/11/23 18:17 36.6 16 123/68 (86) 100 OxyMask 5.00 06/11/23 16:34 36.7 123 19 165/94 (117) 98 Room Air I & O 06/12/23 07:00 Intake Total 1500 ml Output Total 840 ml Balance 660 ml Capillary Refill : Less Than 3 Seconds General Appearance: No Apparent Distress, WD/WN HEENT: PERRL/EOMI, Normal ENT Inspection Neck: Non Tender, Supple Respiratory: Chest Non Tender, No Accessory Muscle Use, No Respiratory Distress Cardiovascular: Tachycardia Extremity: Normal Inspection, Non Tender Neurologic/Psychiatric: Alert, Oriented x3, Normal Mood/Affect Skin: Normal Color, Warm/Dry Lymphatic: No Adenopathy Assessment/Plan Assessment/Plan Assessment/Plan Incisional Pain acute appendicitis Post-Op laparocopic appendectomy NPO IV fluids Zosyn Encourage patient ambulation Continue to monitor drain STEVIE BRENNER DO 06/12/23 2300: Subjective Subjective/Events-last exam Feeling well. Pain controlled. Tolerating clears. Using incentive spirometer. Denies n/v fever sweats chills shortness of breath or chest pain. Objective Exam General Appearance: No Apparent Distress, WD/WN HEENT: PERRL/EOMI, Normal ENT Inspection Neck: Full Range of Motion, Non Tender Respiratory: Chest Non Tender, No Accessory Muscle Use, No Respiratory Distress Cardiovascular: Regular Rate, Rhythm, No JVD Gastrointestinal: soft, tenderness (incisional, drain serous/murky, incsions c/d/i no signs infection) Extremity: Normal Inspection, Non Tender Neurologic/Psychiatric: Alert, Oriented x3 Skin: Normal Color, Warm/Dry Lymphatic: No Adenopathy Assessment/Plan Assessment/Plan Assessment/Plan Acute appendicitis s/p laparoscopic appendectomy and drainage intrabominal abscess with drain placement Advance diet IV fluids Zosyn Encourage patient ambulation Drain to bulb suction Ambulate IS Likely home tomorrow. Supervisory-Addendum Brief Verification & Attestation Participated in pt care: history, MDM, physical Personally performed: exam, history, MDM, supervision of care Care discussed with: Medical Student Procedures: n/a Results interpretation: Verified all documentation Verification and Attestation of Medical Student E/M Service A medical student performed and documented this service in my presence. I reviewed and verified all information documented by the medical student and made modifications to such information, when appropriate. I personally performed the physical exam and medical decision making. Stevie Brenner, Jun 12, 2023,22:59 KAROLYN CRUZ Jun 12, 2023 07:31 STEVIE BRENNER DO Jun 12, 2023 23:00
[2023-06-12] MEDS: HYDROcodone/ACETAMINOPHEN 5 MG/325 MG TABLET PO PRN ×2 (08:11→21:31)
[2023-06-12 11:20] VITALS: BP 112/71
--- NOTE | 2023-06-12 13:52 | Anesthesia-General Post-Op ---
General Patient Condition Mental Status/LOC: Same as Preop Cardiovascular: Satisfactory Nausea/Vomiting: Absent Respiratory: Satisfactory Pain: Controlled Complications: Absent Post Op Complications Complications None Follow Up Care/Instructions Patient Instructions None needed. Anesthesia/Patient Condition Patient Condition Patient is doing well, no complaints, stable vital signs, no apparent adverse anesthesia problems. No complications reported per nursing. HOOD CINTRON CRNA Jun 12, 2023 13:52
[2023-06-12 15:33] VITALS: BP_SYST 108; BP_SYST 97; BP_DIAS 56; BP_DIAS 59
[2023-06-12 19:25] VITALS: BP 106/61
[2023-06-12 23:10] VITALS: BP 110/67
[2023-06-13 03:01] VITALS: BP 113/72
[2023-06-13] MEDS: ACETAMINOPHEN 325 MG TABLET PO PRN ×2 (03:50→10:10)
[2023-06-13] MEDS: PIPERACILLIN SODIUM/TAZOBACTAM 4.5 GM in NS (IVPB) 100 ML 100 ML IV SCH (06:14)
--- NOTE | 2023-06-13 06:20 | Progress Note - Surgery ---
KAROLYN CRUZ 06/13/23 0620: Subjective Date Seen by a Provider: Jun 13, 2023 Time Seen by a Provider: 07:01 Subjective/Events-last exam 58 year old female is post appendectomy. She is doing very well and is having some pain around the incisional site. She had some nausea last night which was helped by Sheeba. Patient is using incentive spirometer. Denies n/v fever sweats chills shortness of breath or chest pain. She is ambulating without discomfort. Patient reports having passed gas several times since yesterday. Tolerating foods well. She is excited to be discharged soon. Focused Exam Sepsis Stage: Ruled Out Respiratory: Chest Non Tender, No Accessory Muscle Use, No Respiratory Distress; No Accessory Muscle Use, No Crackles Cardiovascular: No Edema, Normal Peripheral Pulses; No Bradycardia, No Tachycardia Peripheral Pulses: 2+ Radial Pulses (R), 2+ Radial Pulses (L) Skin: normal color, warm/dry; No cyanosis, No ecchymosis Objective Exam Vital Signs Date Time Temp Pulse Resp B/P (MAP) Pulse Ox O2 Delivery O2 Flow Rate FiO2 06/13/23 03:01 36.4 93 16 113/72 (86) 95 Room Air 06/12/23 23:10 36.9 94 18 110/67 (81) 97 Room Air 06/12/23 19:45 Room Air 06/12/23 19:25 36.3 94 18 106/61 (76) 100 06/12/23 15:33 36.4 73 17 97/59 (72) 96 Room Air 06/12/23 15:33 36.2 85 20 108/56 (73) 96 06/12/23 11:20 37.0 71 20 112/71 (85) 96 Room Air 06/12/23 07:36 Room Air 06/12/23 07:26 36.6 75 18 106/66 (79) 97 Room Air I & O 06/13/23 07:00 Intake Total 2800 ml Output Total 1315 ml Balance 1485 ml Capillary Refill : Less Than 3 Seconds General Appearance: No Apparent Distress, WD/WN; No Anxious, No Cachetic HEENT: PERRL/EOMI, Normal ENT Inspection Neck: Full Range of Motion, Non Tender; No Limited Range of Motion, No Lymphadenopathy (L) Respiratory: Chest Non Tender, No Accessory Muscle Use, No Respiratory Distress; No Accessory Muscle Use, No Crackles Cardiovascular: Regular Rate, Rhythm, No JVD; No No Murmur, No Normal Peripheral Pulses Peripheral Pulses: 2+ Radial Pulses (R), 2+ Radial Pulses (L) Gastrointestinal: soft, tenderness (incisional, drain serous/murky, incsions c/d/i no signs infection) Extremity: Normal Inspection, Non Tender Neurologic/Psychiatric: Alert, Oriented x3 Skin: Normal Color, Warm/Dry Lymphatic: No Adenopathy Assessment/Plan Assessment/Plan Assessment/Plan Acute appendicitis Post- op laparoscopic appendectomy Drainage intrabominal abscess with drain placement Zosyn for nausea Drain to bulb suction Ambulate Prepare patient to be discharged BASSAM BRENNER DO 06/13/23 0935: Subjective Subjective/Events-last exam Feeling well. Tolerating diet. Slight nausea last night but improved. Pain controlled. Denies fever sweats chills shortness of breath or chest pain. Objective Exam General Appearance: No Apparent Distress, WD/WN HEENT: PERRL/EOMI, Normal ENT Inspection Neck: Full Range of Motion, Non Tender Respiratory: Chest Non Tender, No Accessory Muscle Use, No Respiratory Distress Cardiovascular: Regular Rate, Rhythm, No JVD Gastrointestinal: soft, tenderness (incisional, drain serous/murky, incsions c/d/i no signs infection) Extremity: Normal Inspection, Non Tender Neurologic/Psychiatric: Alert, Oriented x3 Skin: Normal Color, Warm/Dry Lymphatic: No Adenopathy Assessment/Plan Assessment/Plan Assessment/Plan Acute appendicitis s/p laparoscopic appendectomy and drainage intrabominal abscess with drain pl acement convert to oral abx Drain to bulb suction Ambulate dc home with outpatient follow up. Supervisory-Addendum Brief Verification & Attestation Participated in pt care: history, MDM, physical Personally performed: exam, history, MDM, supervision of care Care discussed with: Medical Student Procedures: n/a Results interpretation: Verified all documentation Verification and Attestation of Medical Student E/M Service A medical student performed and documented this service in my presence. I reviewed and verified all information documented by the medical student and made modifications to such information, when appropriate. I personally performed the physical exam and medical decision making. Bassam Brenner, Jun 13, 2023,09:35 KRAOLYN CRUZ Jun 13, 2023 06:20 BASSAM BRENNER DO Jun 13, 2023 09:35
[2023-06-13 07:25] VITALS: BP 114/79
[2023-06-13] MEDS ORDERED: ACHD5005 PO (09:27)
[2023-06-13] MEDS ORDERED: AMOX1TAB12 PO (09:27)
[2023-06-13] MEDS ORDERED: DOCU-143 PO (09:27)
--- NOTE | 2023-06-13 09:30 | Discharge Inst-Simple/Standard ---
Discharge Inst-Standard Discharge Medications New, Converted or Re-Newed RX: Transmitted to Pharmacy Patient Instructions/Follow Up Plan of Care/Instructions/FU: 2 weeks Elidai. Keep track of drainage total over every 24 hrs. When it is less than 30 mL in 24 hours notify the office to have drain removed. Activity as Tolerated: No Discharge Diet: Regular Diet Other Inst to Patient Follow up Appt: Make appointment for 2 week. Keep track of drainage total over every 24 hrs. When it is less than 30 mL in 24 hours notify the office to have drain removed. Instructions: No lifting greater than 10 pounds. No strenuous activity. May shower in 24 hours, no tub bath or soaking. Use incentive spirometer at home as directed. No Smoking Skin/Wound Care: You have special glue over your incision that will fall off on it's own. Symptoms to Report: Appetite Changes, Extremity Discoloration, Numbness/Tingling, Swelling Increase d, Bleeding Excessive, Eyesight Changes, Pain Increased, Urine Color Change, Constipation(Persistent), Fever over 101 degree F, Pain/Pressure in chest, Urinating Difficulty, Cough Up/Vomit Blood, Heart Beat Irreg/Pounding, Pain/Pressure in jaw, Vaginal Bleeding Increase, Cramps in feet or legs, Lightheadedness, Pain/Pressure in shoulder, Diarrhea(Persistent), Memory Changes Suddenly, Questions/Concerns, Weight gain consecutive days, Dizziness/Fainting, Nausea/Vomiting, Shortness of Breath, Weight gain over 2 pounds If questions or concerns contact your physician Or seek help at emergency department. STEVIE BROWN DO Jun 13, 2023 09:30
[2023-06-13] MEDS ORDERED: TERB250T88 PO (09:52)
[2023-06-13] MEDS ORDERED: HYDR12.56 PO (09:52)
[2023-06-13] MEDS ORDERED: LACT1CAP62 PO (09:52)
[2023-06-13] MEDS ORDERED: LOSA50TA63 PO (09:52)
[2023-06-13] MEDS ORDERED: FEXO180T84 PO (09:52)
[2023-06-13] MEDS ORDERED: ESTR1TAB24 PO (09:52)
== END 2023-06-13 11:00 | disposition home or self-care (01) ==
LOC: UNDOADMOB 16:02 → 4TH 16:02 → UNDODISOB 06-13 11:00
PROVIDERS: ADMIT Surgery; ATTEND Surgery
DX: K35.21 Acute appendicitis with generalized peritonitis, with abscess (principal); E66.9 Obesity, unspecified; Z68.37 Body mass index [BMI] 37.0-37.9, adult
CPT/HCPCS: 44970; 94664; 96361 ×2; 96366 ×3; 96375 ×2; 96376; G0378; G0379

== ENCOUNTER 2023-08-21 06:11 | Outpatient (CLI) | payer OTHER ==
[~2023-08-21] VITALS: Ht 160 cm; Wt 91.9 kg
[~2023-08-21 06:11] MED LIST changes: +ACHD5005 PO; +AMOX1TAB12 PO; +DOCU-143 PO; +ESTR1TAB24 PO; +FEXO180T84 PO; +HYDR12.56 PO; +LACT1CAP62 PO; +LOSA50TA63 PO; +TERB250T88 PO
== END 2023-08-23 17:07 | disposition home or self-care (01) ==
LOC: PREOP 06:11
PROVIDERS: ATTEND Surgery
DX: Z01.818 Encounter for other preprocedural examination (principal)

== ENCOUNTER 2023-09-03 08:20 | Day surgery (SDC) | payer OTHER ==
[~2023-09-03] VITALS: Ht 160 cm; Wt 91.9 kg
[2023-09-03] MEDS ORDERED: LACTATED RINGERS 1,000 ML 1,000 ML IV STA (08:26)
[2023-09-03 08:35] VITALS: BP 147/84
--- NOTE | 2023-09-03 08:57 | Progress Note-Pre Operative ---
Pre-Operative Progress Note Date H&P Reviewed: Sep 03, 2023 Time H&P Reviewed: 08:57 History & Physical: H&P Reviewed, Patient Examed, No changes noted Pre-Operative Diagnosis: screening colonoscopy STEVIE BROWN DO Sep 03, 2023 08:57
--- NOTE | 2023-09-03 09:28 | Progress Note-Post Operative ---
Post-Operative Progess Note Surgeon (s)/Guide Dog Instructor (s) Surgeon STEVIE BROWN DO Guide Dog Instructor: n/a Pre-Operative Diagnosis screening colonoscopy Post-Operative Diagnosis descending colon polyp and internal hemorrhoids Procedure & Operative Findings Date of Procedure 09/03/23 Procedure Performed/Findings Colonoscopy with hot bx polypectomy Anesthesia Type per GAMING FLOOR SUPERVISOR Estimated Blood Loss Estimated blood loss (mL): none Specimens/Packing Specimens Removed descending colon polyp STEVIE BROWN DO Sep 03, 2023 09:28
--- NOTE | 2023-09-03 09:29 | Discharge Inst-Simple/Standard ---
Discharge Inst-Standard Patient Instructions/Follow Up Plan of Care/Instructions/FU: 2 weeks ignacio Activity as Tolerated: Yes Discharge Diet: Regular Diet STEVIE BROWN DO Sep 03, 2023 09:29
[2023-09-03 09:30] VITALS: BP 109/70
[2023-09-03 09:35] VITALS: BP 110/67
[2023-09-03 09:40] VITALS: BP 114/71
[2023-09-03 09:50] VITALS: BP 114/71
[2023-09-03 10:10] VITALS: BP 114/71
--- NOTE | 2023-09-03 13:55 | Anesthesia-General Post-Op ---
MAC Patient Condition Mental Status/LOC: Same as Preop Cardiovascular: Satisfactory Nausea/Vomiting: Absent Respiratory: Satisfactory Pain: Controlled Complications: Absent Post Op Complications Complications None Follow Up Care/Instructions Patient Instructions None needed. Anesthesiology Discharge Order Discharge Order Patient is doing well, no complaints, stable vital signs, no apparent adverse anesthesia problems. No complications reported per nursing. HOOD CINTRON CRNA Sep 03, 2023 13:55
--- NOTE | 2023-09-03 19:16 | OPERATIVE REPORT ---
DATE OF SERVICE: 09/03/2023 PREOPERATIVE DIAGNOSIS: Screening colonoscopy. POSTOPERATIVE DIAGNOSES: Descending colon polyp and internal hemorrhoids. PROCEDURE: Colonoscopy with hot biopsy polypectomy. SURGEON: Stevie Brenner DO ANESTHESIA: Per ED TEACHER. ESTIMATED BLOOD LOSS: None. DESCRIPTION OF PROCEDURE: The patient is taken to endoscopy suite, placed in left lateral recumbent position. Timeout was performed. Digital rectal exam was performed noting some internal hemorrhoids, a small fibroepithelial polyp. No polyps, masses or ulcerations. Scope was inserted into the rectum, advanced all the way to the cecum with minimal difficulty. Prep was adequate. Scope was slowly retracted back. No polyps, masses or ulcerations in the cecum, ascending, transverse colon. In the descending colon, small polyp was present, which hot polypectomy was performed. Scope was then continuously retracted back. No polyps, masses or ulcerations remainder of the descending and sigmoid colon. Once in the rectum, scope was retroflexed noting no other pathology except for again noting the internal hemorrhoids with a small fibroepithelial polyp. Scope was returned to its normal position, slowly withdrawn until completely removed. The patient tolerated the procedure well without complications, taken to recovery room in stable condition. RECOMMENDATIONS: The patient will need repeat colonoscopy in 5 years. Any issues before that, be seen at that time. She will follow up on pathology in 2 weeks. Job ID: [id number] DocumentID: [id number] Dictated Date: 09/03/2023 09:31:02 Php Architect Date: 09/03/2023 19:14:00 Dictated By: STEIVE BRENNER DO
== END 2023-09-03 10:10 | disposition home or self-care (01) ==
LOC: ENDO 08:20
PROVIDERS: ATTEND Surgery
DX: Z12.11 Encounter for screening for malignant neoplasm of colon (principal); D12.4 Benign neoplasm of descending colon; K64.8 Other hemorrhoids; K62.1 Rectal polyp
CPT/HCPCS: 88305